=== PATIENT | female | born 1935 | race Caucasian/White ===

== ENCOUNTER 2019-06-12 14:51 | Emergency (ER) | payer MEDICARE ==
[~2019-06-12] VITALS: Ht 167.6 cm; Wt 117.9 kg
[~2019-06-12 14:51] MED LIST: ALBU3IS; ALLO100 PO; ASPI81EC PO; ATOR10 PO; AZIT250 PO; Allopurinol100 MG; Amox Tr-K Clv1 EAC2; B-12500 MCG; BUME1; BUME2 PO; CALC.25 PO; CEFP200 PO; CELE200 PO; CEPH500 PO; CODACE30 PO; CYAN1000; CYAN1000 PO; CYCL10 PO; Coumadin5 MG; DIABETIC S100 MG/5 M; DULO30 PO; ESTR2; FAMO20 PO; FOLI1 PO; FURO20 PO; Flonase 0.05% N16 GM; GABA300 PO; HYDMETSO BOTHEYES; IRON150C PO; LEVSOD125 PO; LEVSOD50 PO; LOSA50 PO; LOSARTAN POTASS50 MG PO; METCAR750 PO; METO50ER; METO50ER PO; NITR100CA PO; NYSTATIN1 EAC1 MC; OXYACE5T PO; OXYC5 PO; OXYGEN 2L; PRED10 PO; Percocet 5-3251 EACH PO; Prednisone20 MG PO; SPIR25 PO; TRAM50 PO; TRIHYD5075; VALS80 PO; Valtrex1000 MG PO; WARF3; WARF4 PO; WARF5; WARF5 PO; WARF6; Zofran Odt4 MG SL; [UNRECOGNIZED DRUG - CODE]; [UNRECOGNIZED DRUG - OTHER] PO
[2019-06-12] MEDS ORDERED: METO25 PO (15:22)
[2019-06-12] MEDS ORDERED: Imdur60 MG PO (15:24)
[2019-06-12] MEDS ORDERED: WARF3 PO (15:24)
== END 2019-06-12 16:13 | disposition home or self-care (01) ==
LOC: ER 14:51
DX: M54.2 Cervicalgia (principal); Z79.01 Long term (current) use of anticoagulants; I10 Essential (primary) hypertension; M19.90 Unspecified osteoarthritis, unspecified site; Z88.2 Allergy status to sulfonamides; Z88.5 Allergy status to narcotic agent; Z88.8 Allergy status to other drugs, medicaments and biological substances; Z91.048 Other nonmedicinal substance allergy status; Z79.899 Other long term (current) drug therapy; Z86.711 Personal history of pulmonary embolism; Z86.718 Personal history of other venous thrombosis and embolism; W18.30XA Fall on same level, unspecified, initial encounter
CPT/HCPCS: 70450; 72125; 99284-25

== ENCOUNTER 2019-07-15 01:08 | Observation (INO) | payer MEDICARE ==
[~2019-07-15] VITALS: Ht 167.6 cm; Wt 119.5 kg
[~2019-07-15 01:08] MED LIST changes: +Imdur60 MG PO; +METO25 PO; +WARF3 PO
[2019-07-15 01:53] LABS: International Normalized Ratio 1.97; Magnesium, Blood 1.7 mg/dL (1.6-2.4); Prothrombin Time Results 20.3 Sec (9.7-11.5); Troponin I <0.015 ng/mL (0.000-0.040)
[2019-07-15 01:54] LABS: Alanine Aminotransfer (ALT/SGP 22 U/L (12-78); Albumin, Blood 3.5 g/dL (3.4-5.0); Albumin/Globulin Ratio 0.9 (0.8-1.8); Alk Phos 121 U/L (50-136); Anion Gap 9 mmol/L (6-16); Aspartate Aminotrans (AST/SGOT 30 U/L (12-37); Bilirubin, Total 0.4 mg/dL (0.1-1.0); Blood Urea Nitrogen 21 mg/dL (8-24); Bun/Creatinine Ratio 18.3 (12.0-20.0); CO2, Blood 26 mmol/L (21-32); Calcium, Blood 9.3 mg/dL (8.5-10.1); Chloride, Blood 107 mmol/L (98-108); Creatinine, Blood 1.15 mg/dL (0.40-1.00); Globulin, Blood 3.7 g/dL (2.2-4.0); Glomerular Filtration Rate 48 (60-); Glucose, Blood 166 mg/dL (70-99); Potassium, Blood 4.1 mmol/L (3.5-5.5); Sodium, Blood 142 mmol/L (136-145); Total Protein, Blood 7.2 g/dL (6.4-8.2)
[2019-07-15 01:56] LABS: BASOPHILS ABSOLUTE AUTO 0.02 K/mm3 (0.00-0.23); BASOPHILS PERCENT AUTO 0 % (0-2); EOSINOPHILS PERCENT AUTO 2 % (0-6); Hematocrit 40.8 % (33.0-51.0); Hemoglobin 12.9 g/dL (11.5-16.0); IMMATURE GRAN ABSOLUTE AUTO 0.03 K/mm3 (0.00-0.10); IMMATURE GRAN PERCENT AUTO 1 % (0-1); LYMPHOCYTES ABSOLUTE AUTO 1.36 K/mm3 (0.84-5.20); LYMPHOCYTES PERCENT AUTO 28 % (21-46); MONOCYTES ABSOLUTE AUTO 0.45 K/mm3 (0.16-1.47); MONOCYTES PERCENT AUTO 9 % (4-13); Mean Corpuscular HGB 31.5 pg (26.0-34.0); Mean Corpuscular HGB Conc 31.6 g/dL (31.5-36.5); Mean Corpuscular Volume 100 fL (80-100); Mean Platelet Volume 10.5 fL (9.1-12.4); NEUTROPHILS ABSOLUTE AUTO 2.85 K/mm3 (1.96-9.15); NEUTROPHILS PERCENT AUTO 59 % (41-73); Platelet Count 176 K/mm3 (150-400); RDW Coefficient Variation 15.5 % (11.7-14.2); RDW Standard Deviation 57.1 fL (35.1-46.3); White Blood Cell Count 4.81 K/mm3 (4.00-11.30)
[2019-07-15 04:22] LABS: PCO2 Arterial 44.8 mmHg (35-45); PO2 Arterial 82.4 mmHg (80-100); pH Blood Arterial 7.37 (7.35-7.45)
--- NOTE | 2019-07-15 05:45 | NUR ---
REPORT RECIEVED AT 0545 AND AWAITING PT T/F TO ROOM 339.
[2019-07-15 06:34] LABS: Source, Urine Clean Catch
[2019-07-15 06:38] LABS: Appearance, Urine Hazy (Clear); Bilirubin, Urine Neg (Neg); Blood, Urine 1+ (Neg); Color, Urine Yellow (P-Yellow); Glucose Qualitative, Urine Neg (Neg); Ketones, Urine Neg (Neg); Leukocyte Esterase, Urine 3+ (Neg); Nitrite, Urine Pos (Neg); Protein, Urine 2+ (Neg); Specific Gravity, Urine 1.015 (1.003-1.022); Urobilinogen, Urine 1+ (Normal)
--- NOTE | 2019-07-15 06:45 | NUR ---
PT T/F TO ROOM 339 AT 0552 VIA [facility]. SHE USED BSC W/SBA THEN TRANSFERRED TO BED. URINE SPECIMEN OBTAINED AND SENT. TELEMTRY PLACED AND TECH COULDN'T DECIPHER RHYTHM BUT LIKELY AFIB AT 90'S. PT HAS KNOWN HX AFIB ON RATE CONTROL MEDS. 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 PT ON 4L O2 TO MAINTAIN SPO2 WNL, 3L AT BASELINE AND CPAP FOR RIANNA AT BASELINE. PT DENIES PAIN/COMPLAINTS. SOME SOB NOTED, WORSE W/EXERTION. LASIX IV RECIEVED PER EMAR. ADMISSION PAPERWORK COMMENCED BUT DAY RN WILL NEED TO COMPLETE MED REC, PT UNAWARE OF DOSES BUT USES [facility]. PT ORIENTED TO ROOM AND CALL SYSTEM AND KNOWS TO CALL FOR ASSIST. VSS. WILL REPORT TO DAY RN.
[2019-07-15 06:59] LABS: Bacteria Many /hpf; Red Blood Cells, Urine 0-2 /hpf (0-2); Squamous Epithelial Cells Mod /hpf (Few); White Blood Cells, Urine 25-50 /hpf (0-5)
--- NOTE | 2019-07-15 09:04 | NUR ---
Echocardiogram completed.
[2019-07-15 10:05] LABS: International Normalized Ratio 1.99; Prothrombin Time Results 20.5 Sec (9.7-11.5)
[2019-07-15 10:08] LABS: CPK Creatine Kinase 123 U/L (26-193); Troponin I <0.015 ng/mL (0.000-0.040)
[2019-07-15] MEDS ORDERED: GABA300 PO ×2 (12:52)
[2019-07-15] MEDS ORDERED: FURO20 PO (15:51)
== END 2019-07-15 16:30 | disposition home or self-care (01) ==
LOC: ER 01:08 → MEDS 01:09 → ER 05:44 → MEDS 05:44
PROVIDERS: Emergency Medicine; ADMIT Internal Medicine
DX: J96.21 Acute and chronic respiratory failure with hypoxia (principal); I48.91 Unspecified atrial fibrillation; I27.20 Pulmonary hypertension, unspecified; E66.01 Morbid (severe) obesity due to excess calories; G47.33 Obstructive sleep apnea (adult) (pediatric); I10 Essential (primary) hypertension; E03.9 Hypothyroidism, unspecified; M19.90 Unspecified osteoarthritis, unspecified site; I25.2 Old myocardial infarction; Z79.01 Long term (current) use of anticoagulants; Z88.2 Allergy status to sulfonamides; Z88.5 Allergy status to narcotic agent; Z88.8 Allergy status to other drugs, medicaments and biological substances; Z79.899 Other long term (current) drug therapy; Z86.718 Personal history of other venous thrombosis and embolism; Z87.891 Personal history of nicotine dependence; Z68.41 Body mass index [BMI] 40.0-44.9, adult
CPT/HCPCS: 36415; 36600; 71260; 80053; 81001; 82550; 82803; 83735; 83880; 84484; 85025; 85610; 87077; 87086; 87186; 93005; 93010; 93306; 96360-59; 96361-59; 96374; 99285-25; G0378; J1940; J7030; J7512; Q9967

== ENCOUNTER → 2021-07-29 | Outpatient (CLI) | payer MEDICARE ==
[2021-07-29 13:17] LABS: Source, Urine Clean Catch
[2021-07-29 15:37] LABS: Appearance, Urine Hazy (Clear); Bilirubin, Urine Neg (Neg); Blood, Urine Neg (Neg); Color, Urine Yellow (P-Yellow); Glucose Qualitative, Urine Neg (Neg); Ketones, Urine Neg (Neg); Leukocyte Esterase, Urine Neg (Neg); Nitrite, Urine Neg (Neg); Protein, Urine 1+ (Neg); Urobilinogen, Urine NORM (Normal)
[2021-07-29 15:53] LABS: Bacteria Mod /hpf; Squamous Epithelial Cells Many /hpf (Few)
== END ==
LOC: LAB SHORT 13:16
PROVIDERS: Internal Medicine
DX: N39.0 Urinary tract infection, site not specified (principal)
CPT/HCPCS: 81001; 87077; 87086; 87186